=== PATIENT | male | born 1945 | race Caucasian/White ===

== ENCOUNTER 2018-12-26 06:19 | Day surgery (SDC) | payer MEDICARE, BC ==
[~2018-12-26 06:19] MED LIST: Lactated Ringers 1,000 ML IV SCH
[2018-12-26] MEDS ORDERED: Propofol 200 MG/20 ML SDV ONE (07:44)
[2018-12-26] MEDS ORDERED: fentaNYL 100 MCG/2 ML SDV ONE (07:44)
--- NOTE | 2018-12-26 08:29 | OR ---
PREOPERATIVE DIAGNOSIS: History of polyps. POSTOPERATIVE DIAGNOSIS: Normal colonoscopic exam. PROCEDURE PROPOSED/PROCEDURE DONE: Total flexible colonoscopy. INDICATION: This is a 73-year-old gentleman who approximately 5 years ago had a colonoscopy and was found to have some polyps. He now comes in for a 5-year followup exam. TECHNIQUE: The patient was brought to the endoscopy suite, placed in left lateral decubitus position. He was sedated per [employer] with propofol. The flexible video colonoscope was then passed transanally and under visualization advanced to the cecum. Examination revealed normal ascending, transverse, descending, sigmoid, and rectal colon. There were a few very rare scattered diverticula. Otherwise, there are no signs of any polyps, colitis, or other abnormalities, and the scope was then withdrawn. The patient tolerated the procedure well. FINAL IMPRESSION: 1. Essentially normal colonoscopic exam. 2. History of polyps. PLAN: I feel we should consider one more examination in his lifetime. He would be age 78 at that time for his last examination. SCM: 12/26/2018 08:15:56 MODL: 12/26/2018 08:24:16 /[id number]
[2018-12-26 08:48] VITALS: BP 113/54; PULSE 67
== END 2018-12-26 09:04 | disposition home or self-care (01) ==
LOC: VM.SDS 06:19
PROVIDERS: ATTEND Surgery
DX: Z12.11 Encounter for screening for malignant neoplasm of colon (principal); K57.30 Diverticulosis of large intestine without perforation or abscess without bleeding; I10 Essential (primary) hypertension; I48.0 Paroxysmal atrial fibrillation; E11.9 Type 2 diabetes mellitus without complications; E78.5 Hyperlipidemia, unspecified; K76.0 Fatty (change of) liver, not elsewhere classified; K21.9 Gastro-esophageal reflux disease without esophagitis; J45.20 Mild intermittent asthma, uncomplicated; G47.33 Obstructive sleep apnea (adult) (pediatric); G60.8 Other hereditary and idiopathic neuropathies; E66.9 Obesity, unspecified; Z68.32 Body mass index [BMI] 32.0-32.9, adult; Z88.0 Allergy status to penicillin; Z87.891 Personal history of nicotine dependence; Z86.010 Personal history of colon polyps; Z79.82 Long term (current) use of aspirin; Z79.84 Long term (current) use of oral hypoglycemic drugs; Z79.899 Other long term (current) drug therapy
CPT/HCPCS: 00811; 82962; G0105; J2704; J3010; J7120